=== PATIENT | female | born 1965 | race Caucasian/White ===

== ENCOUNTER 2017-10-07 11:36 | Emergency (ER) | payer MEDICAID ==
[2017-10-07 11:44] VITALS: BP 127/81; PULSE 60; RESP 18; TEMP 98.5; O2SAT 99; BMI 30.9
[2017-10-07] MEDS ORDERED: Naproxen 550 mg Tab PO STA (12:27)
--- NOTE | 2017-10-07 12:40 | C.PDOC ---
History Of Present Illness 51 year old female c/o b/l leg pain intermittently for 1+ year. 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 After work her legs hurt more and are swollen. Notes that they currently are not very swollen. Her PMD, Dr Balderas, refered her to Dr mullen who she saw today and sent to ER for further evaluation. No trauma. No change in sensation. Denies chest pain , SOB, fever or any PMHx. 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 History/Exam Limitations: no limitations Onset/Duration Of Symptoms: Days Current Symptoms Are (Timing): Still Present Recent travel outside of the [place]: No Past Medical History Reviewed: Historical Data, Nursing Documentation, Vital Signs Vital Signs: Last Vital Signs Temp 98.5 F 10/07/17 11:44 Pulse 60 10/07/17 11:44 Resp 18 10/07/17 11:44 BP 127/81 10/07/17 11:44 Pulse Ox 99 10/07/17 13:36 - Medical History PMH: No Chronic Diseases Surgical History: (x2) Family History: States: Unknown Family Hx - Social History Hx Alcohol Use: No Hx Substance Use: No Review Of Systems Constitutional: Negative for: Fever, Chills Cardiovascular: Negative for: Chest Pain Respiratory: Negative for: Shortness of Breath Musculoskeletal: Positive for: Other (Right calf pain) Physical Exam - Physical Exam Appears: Non-toxic, No Acute Distress Skin: Normal Color, Warm, Dry Head: Atraumatic, Normacephalic Eye(s): bilateral: Normal Inspection, EOMI Nose: Normal Oral Mucosa: Moist Neck: Normal, Supple Chest: Symmetrical, No Tenderness Cardiovascular: Rhythm Regular Respiratory: Normal Breath Sounds, No Rales, No Rhonchi, No Wheezing Gastrointestinal/Abdominal: Soft, No Tenderness Extremity: Normal ROM, No Tenderness, No Pedal Edema, No Calf Tenderness, No Swelling, Other ((+) varicose veins) Pulses: Left Dorsalis Pedis: Normal, Right Dorsalis Pedis: Normal Neurological/Psych: Oriented x3, Normal Speech, Other (No focal deficits) Gait: Steady ED Course And Treatment O2 Sat by Pulse Oximetry: 99 (Room air) Pulse Ox Interpretation: Normal Progress Note: Venous duplex scan ordered- No DVT. Naproxen administered. Case discussed with Dr Mullen who instructed outpt follow up. Results faxed to his office. Discussed with pt signs of concern and prevention, use of compression stockings and follow up with PMD in 1-2 days. Disposition - Disposition Referrals: Brett Mullen MD [Staff Provider] - Disposition: HOME/ ROUTINE Disposition Time: 13:34 Condition: STABLE Additional Instructions: Vaya a ac mdico o la clnica en 1-3 garner sin falta, para mas evaluacin. [place] los medicamentos kiah indicado. Volver a la zurdo de emergencia en cualquier momento si los sntomas persisten o empeoran. Instructions: Leg Pain (ED) Forms: [facility] ([place]) Print Language: HEBREW - Clinical Impression Clinical Impression: Chronic leg pain - Scribe Statement The provider has reviewed the documentation as recorded by the Scribe Michael Hook All medical record entries made by the Scribe were at my direction and personally dictated by me. I have reviewed the chart and agree that the record accurately reflects my personal performance of the history, physical exam, medical decision making, and the department course for this patient. I have also personally directed, reviewed, and agree with the discharge instructions and disposition.
[2017-10-07] MEDS ORDERED: Naproxen 550 mg Tab PO ONE (12:56)
--- NOTE | 2017-10-07 13:13 | VASCLAB ---
PROCEDURE: Lower Extremity Venous Duplex Exam. HISTORY: pain PRIORS: None. TECHNIQUE: Bilateral common femoral, femoral, popliteal and posterior tibial, peroneal and great saphenous veins were evaluated. Flow was assessed with color Doppler, compressibility, assessment of phasic flow and augmentation response. Report prepared by LUKE Joe, RVT FINDINGS: RIGHT: 1. Common Femoral Vein: 1.1. Compressibility - Fully compressible: Thrombus - None : Flow - Phasic: Augmentation -Normal: Reflux - None. 2. Femoral Vein: 2.1. Compressibility - Fully compressible: Thrombus - None : Flow - Phasic: Augmentation -Normal: Reflux - None. 3. Popliteal Vein: 3.1. Compressibility - Fully compressible: Thrombus - None : Flow - Phasic: Augmentation -Normal: Reflux - None. 4. Posterior Tibial Vein: 4.1. Compressibility - Fully compressible: Thrombus - None: Flow - Phasic: Augmentation -Normal: Reflux - None. 5. Peroneal Vein: 5.1. Compressibility - Fully compressible: Thrombus - None: Flow - Phasic: Augmentation -Normal: Reflux - None. 6. Great Saphenous Vein: 6.1. Compressibility - Fully compressible: Thrombus - None: Flow - Phasic: Augmentation - Normal: Reflux - None. LEFT: 1. Common Femoral Vein: 1.1. Compressibility - Fully compressible: Thrombus - None: Flow - Phasic: Augmentation -Normal: Reflux - None. 2. Femoral Vein: 2.1. Compressibility - Fully compressible: Thrombus - None: Flow - Phasic: Augmentation -Normal: Reflux - None. 3. Popliteal Vein: 3.1. Compressibility - Fully compressible: Thrombus - None : Flow - Phasic: Augmentation -Normal: Reflux - None. 4. Posterior Tibial Vein: 4.1. Compressibility - Fully compressible: Thrombus - None: Flow - Phasic: Augmentation -Normal: Reflux - None. 5. Peroneal Vein: 5.1. Compressibility - Fully compressible: Thrombus - None: Flow - Phasic: Augmentation -Normal: Reflux - None. 6. Great Saphenous Vein: 6.1. Compressibility - Fully compressible: Thrombus - None: Flow - Phasic: Augmentation - Normal: Reflux - None. OTHER FINDINGS: Right: None significant. Left: None significant. IMPRESSION: Right: No evidence of deep or superficial vein thrombosis of the right lower extremity. Normal valve function noted of the right side. Left: No evidence of deep or superficial vein thrombosis of the left lower extremity. Normal valve function noted of the left side.
== END 2017-10-07 13:44 | disposition home or self-care (01) ==
LOC: C.ER 11:36
DX: G89.29 Other chronic pain (principal); M79.605 Pain in left leg; M79.604 Pain in right leg